=== PATIENT | male | born 1935 | race Caucasian/White ===

== ENCOUNTER 2018-07-16 06:50 | Day surgery (SDC) | payer MEDICARE, OTHER ==
[2018-07-16] MEDS ORDERED: Lidocaine 1% 30 ML SDV ONE (06:54)
[2018-07-16] MEDS ORDERED: Bupivacaine 0.25% 30 ML SDV ONE (06:54)
[2018-07-16] MEDS ORDERED: ceFAZolin 1 GM Vial ONE (06:55)
[2018-07-16] MEDS ORDERED: Lidocaine 1%/Sod Bicarbonate in NS 8.4% 1 ML Syringe IDERM PRN (07:00)
[2018-07-16] MEDS ORDERED: Sodium Chloride 0.9% 10 ML Syringe FLUSH PRN (07:00)
[2018-07-16] MEDS ORDERED: Lactated Ringers 1,000 ML IV SCH (07:00)
--- NOTE | 2018-07-17 07:16 | PCM.OPNOTE ---
- General Post-Op/Procedure Note Date of Surgery/Procedure: 07/16/18 Operative Procedure(s): left carpal tunnel release Pre Op Diagnosis: left median nerve compression neuropathy Post-Op Diagnosis: Same Anesthesia Technique: Local Primary Surgeon: Ferny Bella [employer] Analyst: Gwendolyn Graham in mLs: 5 Complications: None Condition: Good
--- NOTE | 2018-07-18 08:48 | OR ---
DATE OF OPERATION: 07/16/2018 SURGEON: Ferny Bella MD OPERATION PERFORMED: Left carpal tunnel release. PREOPERATIVE DIAGNOSIS: Left median nerve compression neuropathy. POSTOPERATIVE DIAGNOSIS: Left median nerve compression neuropathy. ANESTHESIA: Local. PRIMARY GRADE TEACHER: Gwendolyn Graham PA-C. ESTIMATED BLOOD LOSS: 5 mL. COMPLICATIONS: None. CONDITION: Stable. DESCRIPTION OF PROCEDURE: The patient was identified in the preop holding area. Proper site was marked and identified by the surgeon. The patient was taken back to the operating theater where after adequate anesthesia, the patient's left upper extremity was sterilely prepped and draped in the usual sterile fashion. OR time-out was performed. The patient did not receive antibiotics and it is not indicated for soft tissue hand procedure. At this time, the left upper extremity was exsanguinated and an Esmarch was used as a tourniquet on the forearm. At this time, using 1% lidocaine without epinephrine and 0.25% Marcaine without epinephrine, the palmar cutaneous branch of the median nerve was anesthetized and then the incisional site was anesthetized using Ruiz cardinal line and ulnar border of the fourth digit as reference. Once this had set up, an incision was made. Blunt dissection was taken down to the palmar cutaneous fascia. Palmar cutaneous fascia was incised with a [place] blade. At this time, the transverse carpal ligament was identified. A small rent was made in the transverse carpal ligament with a [place] blade under direct visualization. Resection of the transverse carpal ligament was done distally using tenotomy scissors making sure to stop short of the palmar arch. At this time, attention was turned proximally after it was found to be adequately released. Using the tenotomy scissors keeping the tips ulnar to protect the palmar cutaneous branch of the median nerve, the superficial forearm fascia as well as the transverse carpal ligament were resected proximally. It was found to be adequate release both proximally and distally. At this time, adequate saline was irrigated through the wound. 4-0 nylon sutures were used closure of the skin. The patient was placed in a sterile soft dressing and sent to PACU in stable condition. MMODAL /[id number]
== END 2018-07-16 08:47 | disposition home or self-care (01) ==
LOC: JD.SDS 06:50
PROVIDERS: ATTEND Orthopaedic Surgery
DX: G56.03 Carpal tunnel syndrome, bilateral upper limbs (principal); I10 Essential (primary) hypertension; E78.5 Hyperlipidemia, unspecified; K21.9 Gastro-esophageal reflux disease without esophagitis; Z87.891 Personal history of nicotine dependence; Z79.899 Other long term (current) drug therapy
CPT/HCPCS: J0690; J2001; J3490; J7120

== ENCOUNTER 2019-07-05 07:34 | Emergency (ER) | payer MEDICARE, OTHER ==
--- NOTE | 2019-07-05 08:00 | EDM.PDOC ---
ED HPI GENERAL MEDICAL PROBLEM - General Chief Complaint: General Stated Complaint: FALL/RIB PAIN Time Seen by Provider: 07/05/19 07:48 - History of Present Illness INITIAL COMMENTS - FREE TEXT/NARRATIVE: 84-year-old male presents the emergency room with left-sided rib pain difficulty taking deep breaths. Patient fell on Saturday hitting the left front of his chest on the pavement. He has developed scratch that since that time he has had difficulty breathing especially deep breaths and turning and repositioning his chest is very uncomfortable. Patient denies any other injuries with this unfortunate event. Patient does state that he has some numbness in his index and middle fingers bilaterally but this is been present for quite a long time. The patient fell on Saturday now 2 days ago. Patient denies any fevers or chills he does not have a productive cough. At this time the patient is in no acute distress. - Related Data Allergies Allergy/AdvReac Type Severity Reaction Status Date / Time No Known Allergies Allergy Verified 07/05/19 07:45 Home Meds: Home Meds Pravastatin [Pravachol] 20 mg PO DAILY 08/05/13 [History] lisinopriL [Prinivil] 20 mg PO DAILY 08/05/13 [History] Diphenoxylate HCl/Atropine [Lomotil] 1 tab PO QID PRN 07/15/18 [History] Triamcinolone Acetonide [Nasacort] 2 spray NS BID PRN 07/15/18 [History] Past Medical History HEENT History: Reports: Other (See Below) Other HEENT History: Mouth Cancer Cardiovascular History: Reports: High Cholesterol, Hypertension Respiratory History: Reports: None Other Gastrointestinal History: Colon cancer Genitourinary History: Reports: None Other Musculoskeletal History: Carpal tunnel syndrome Neurological History: Reports: None Psychiatric History: Reports: None Endocrine/Metabolic History: Reports: None Hematologic History: Reports: None Immunologic History: Reports: None Oncologic (Cancer) History: Reports: Colon, Other (See Below) Other Oncologic History: Mouth cancer, skin cancer Dermatologic History: Reports: None - Past Surgical History Head Surgeries/Procedures: Reports: None HEENT Surgical History: Reports: Adenoidectomy, Tonsillectomy Other HEENT Surgeries/Procedures: Oral surgery due to cancer Cardiovascular Surgical History: Reports: None Respiratory Surgical History: Reports: None Other GI Surgeries/Procedures: Partial colectomy with resection and colostomy, reversal of colostomy Male Surgical History: Reports: None Endocrine Surgical History: Reports: None Other Neurological Surgeries/Procedures: Back surgery Musculoskeletal Surgical History: Reports: Knee Replacement Other Musculoskeletal Surgeries/Procedures:: Left ankle fusion, back surgery Dermatological Surgical History: Reports: Skin Biopsy Social & Family History - Tobacco Use Smoking Status *Q: Never Smoker Second Hand Smoke Exposure: No - Caffeine Use Caffeine Use: Reports: None - Recreational Drug Use Recreational Drug Use: No ED ROS GENERAL - Review of Systems Review Of Systems: See Below Constitutional: Reports: No Symptoms. Denies: Fever, Chills HEENT: Reports: No Symptoms Respiratory: Reports: Shortness of Breath. Denies: Wheezing, Cough (I can Julian the chest wall pain), Sputum Cardiovascular: Reports: No Symptoms Endocrine: Reports: No Symptoms GI/Abdominal: Reports: No Symptoms : Reports: No Symptoms Musculoskeletal: Reports: No Symptoms Skin: Reports: No Symptoms Neurological: Reports: No Symptoms ED EXAM, GENERAL - Physical Exam Exam: See Below Exam Limited By: No Limitations General Appearance: Alert, No Apparent Distress Head: Atraumatic, Normocephalic Neck: Normal Inspection, Supple, Non-Tender, Full Range of Motion Respiratory/Chest: No Respiratory Distress, Lungs Clear, Normal Breath Sounds, Other (Significant discomfort in the left anterior chest with palpation this is mostly midway up the chest a little above the nipple line.) Cardiovascular: Regular Rate, Rhythm, No Edema, No Murmur GI/Abdominal: Normal Bowel Sounds, Soft, Non-Tender EKG INTERPRETATION EKG Date: 07/05/19 Rhythm: NSR [place]: Normal P-Wave: Present QRS: Normal ST-T: Normal QT: Normal Comparison: NA - No Prior EKG EKG Interpretation Comments: Amazingly unremarkable EKG for 84-year-old gentleman Course - Vital Signs Last Recorded V/S: Last Vital Signs Temp 36.4 C 07/05/19 07:43 Pulse 71 07/05/19 07:43 Resp 16 07/05/19 07:43 BP 142/63 H 07/05/19 07:43 Pulse Ox 98 07/05/19 07:43 - Orders/Labs/Meds Orders: Active Orders 24 hr Category Date Time Status EKG Documentation Completion [RC] STAT Care 07/05/19 08:00 Active Chest 2V [CR] Stat Exams 07/05/19 08:00 Taken Ribs 2V wo Chest Lt [CR] Stat Exams 07/05/19 08:00 Taken - Re-Assessments/Exams Free Text/Narrative Re-Assessment/Exam: 07/05/19 08:33 KG shows no acute changes I am waiting official radiology read at this x-rays but I do not see any obvious rib fractures or acute cardiopulmonary changes. He is got some underlying lung disease but nothing acute. Departure - Departure Time of Disposition: 08:34 Disposition: Home, Self-Care 01 Clinical Impression: Chest wall contusion - Discharge Information Referrals: Delano Everett MD [Primary Care Provider] - Forms: ED Department Discharge Additional Instructions: Return to the emergency room with any questions problems or worsening symptoms. Take Tylenol 650 mg every 4-6 hours while awake for the discomfort. Every hour and a half or so while you are awake take 3 really deep breaths then hold it for a few seconds then slowly let it out. Sepsis Event Note - Evaluation Sepsis Screening Result: No Definite Risk - Focused Exam Vital Signs: Vital Signs Temp Pulse Resp BP Pulse Ox 07/05/19 07:43 36.4 C 71 16 142/63 H 98 Date Exam was Performed: 07/05/19 Time Exam was Performed: 08:32 - My Orders Last 24 Hours: My Active Orders 07/05/19 08:00 EKG Documentation Completion [RC] STAT Chest 2V [CR] Stat Ribs 2V wo Chest Lt [CR] Stat - Assessment/Plan Last 24 Hours: My Active Orders 07/05/19 08:00 EKG Documentation Completion [RC] STAT Chest 2V [CR] Stat Ribs 2V wo Chest Lt [CR] Stat
[2019-07-05] MEDS ORDERED: Acetaminophen 325 MG Tab PO ONE (08:33)
--- NOTE | 2019-07-05 14:00 | CR ---
Left ribs: 3 views of the left ribs were obtained. Comparison: No previous rib exam, study correlated with chest x-ray performed on the same day. Findings: Acute fracture is identified within the left 7th rib. No displacement is appreciated. Slight deformity is noted within the left 3rd and 4th ribs possibly due to additional acute fractures. Deformity is noted within the left 5th and 6th ribs which more likely represent old rib fractures. Additional rib deformities are seen within the 8th and 9th ribs most likely due to old fractures. Impression: 1. Definite acute fracture within the left 7th rib. Possible acute fractures within the left 3rd and 4th ribs. 2. Probable old fractures which appear healed within the left 5th and 6th as well as 8th and 9th ribs. Diagnostic code #3 This report was dictated in MDT
--- NOTE | 2019-07-05 14:00 | CR ---
Chest: 2 views of the chest were obtained. Comparison: No previous chest imaging is available. Heart size and mediastinum are normal. Mild scoliosis is noted within the spine with mild degenerative change. Lungs show no acute parenchymal change. No pneumothorax is identified. Rib fractures are seen which will be described on subsequent rib exam. Surgical clips are seen within the left upper abdomen. Impression: 1. Nothing acute seen on PA and lateral chest x-ray. 2. Please see rib exam for description of rib fractures. Diagnostic code #2 This report was dictated in MDT
== END 2019-07-05 08:49 | disposition home or self-care (01) ==
LOC: JD.ED 07:34
DX: S20.212A Contusion of left front wall of thorax, initial encounter (principal); E78.00 Pure hypercholesterolemia, unspecified; I10 Essential (primary) hypertension; Z79.899 Other long term (current) drug therapy; Z85.038 Personal history of other malignant neoplasm of large intestine; Z85.828 Personal history of other malignant neoplasm of skin; W19.XXXA Unspecified fall, initial encounter
CPT/HCPCS: 71046; 71100; 93005; 99283; A9270; 93010

== ENCOUNTER 2020-09-02 07:58 | Emergency (ER) | payer MEDICARE, OTHER ==
--- NOTE | 2020-09-02 08:45 | EDM.PDOC ---
ED HPI GENERAL MEDICAL PROBLEM - General Chief Complaint: Respiratory Problem Stated Complaint: COUGH X 10 DAYS Time Seen by Provider: 09/02/20 08:42 - History of Present Illness INITIAL COMMENTS - FREE TEXT/NARRATIVE: 85-year-old male presents the emergency room with a cough. This cough has been present for 10 days. Patient is not aware of any fevers or chills. He has not had any nausea or vomiting. At times he gets dizzy after coughing several times. Patient has not had any chest pain or chest pressure. He has not noticed any lower extremity edema. No abdominal pain nausea vomiting or diarrhea. Patient is coughing up some clear to off-color sputum at times. He has not complained of his cough been especially painful. - Related Data Allergies Allergy/AdvReac Type Severity Reaction Status Date / Time No Known Allergies Allergy Verified 09/02/20 08:26 Home Meds: Home Meds lisinopriL [Prinivil] 20 mg PO DAILY 08/05/13 [History] Diphenoxylate HCl/Atropine [Lomotil] 1 tab PO QID PRN 07/15/18 [History] Doxycycline [Vibramycin] 100 mg PO BID #14 tab 09/02/20 [Rx] Past Medical History HEENT History: Reports: Other (See Below) Other HEENT History: Mouth Cancer Cardiovascular History: Reports: High Cholesterol, Hypertension Respiratory History: Reports: None Other Gastrointestinal History: Colon cancer Genitourinary History: Reports: None Other Musculoskeletal History: Carpal tunnel syndrome Neurological History: Reports: None Psychiatric History: Reports: None Endocrine/Metabolic History: Reports: None Hematologic History: Reports: None Immunologic History: Reports: None Oncologic (Cancer) History: Reports: Colon, Other (See Below) Other Oncologic History: Mouth cancer, skin cancer Dermatologic History: Reports: None - Infectious Disease History Infectious Disease History: Reports: Chicken Pox, Measles, Mumps - Past Surgical History HEENT Surgical History: Reports: Adenoidectomy, Tonsillectomy Other HEENT Surgeries/Procedures: Oral surgery due to cancer Respiratory Surgical History: Reports: None Other GI Surgeries/Procedures: Partial colectomy with resection and colostomy, reversal of colostomy Male Surgical History: Reports: None Endocrine Surgical History: Reports: None Other Neurological Surgeries/Procedures: Back surgery Musculoskeletal Surgical History: Reports: Knee Replacement Other Musculoskeletal Surgeries/Procedures:: Left ankle fusion, back surgery Dermatological Surgical History: Reports: Skin Biopsy Social & Family History - Tobacco Use Tobacco Use Status *Q: Former Tobacco User Years of Tobacco use: 35 Packs/Tins Daily: 1 Used Tobacco, but Quit: Yes Month/Year Tobacco Last Used: 1989 - Caffeine Use Caffeine Use: Reports: Coffee - Recreational Drug Use Recreational Drug Use: No ED ROS GENERAL - Review of Systems Review Of Systems: See Below Constitutional: Reports: No Symptoms HEENT: Reports: No Symptoms Respiratory: Reports: Cough, Sputum. Denies: Shortness of Breath, Pleuritic Chest Pain Cardiovascular: Denies: Chest Pain Endocrine: Reports: No Symptoms GI/Abdominal: Reports: No Symptoms Skin: Reports: No Symptoms Neurological: Reports: No Symptoms ED EXAM, GENERAL - Physical Exam Exam: See Below Exam Limited By: No Limitations General Appearance: Alert, No Apparent Distress Ears: Normal External Exam, Normal Canal, Hearing Grossly Normal, Normal TMs Nose: Normal Inspection, Normal Mucosa, No Blood Throat/Mouth: Normal Inspection, Normal Lips, Normal Gums, Normal Oropharynx, Normal Voice, No Airway Compromise, Other (He still has his teeth he has had multiple repairs in the past) Head: Atraumatic, Normocephalic Neck: Normal Inspection, Supple, Non-Tender, Full Range of Motion Respiratory/Chest: No Respiratory Distress, Lungs Clear, Normal Breath Sounds Cardiovascular: Normal Peripheral Pulses, Regular Rate, Rhythm, No Edema, Other (Soft murmur heard best left lateral area this is much milder than the bruit heard in the abdomen and could be radiating from that area.) GI/Abdominal: Normal Bowel Sounds, Soft, Non-Tender, Other (He has what sounds like an abdominal bruit heard best over the umbilicus) Back Exam: Normal Inspection. No: CVA Tenderness (L), CVA Tenderness (R) Extremities: Normal Inspection, No Pedal Edema. No: Pedal Edema Neurological: Alert, Oriented, Normal Cognition Psychiatric: Normal Affect, Normal Mood #1 Interpretation EKG Date: 09/02/20 Rhythm: Other (Normal sinus rhythm with a single PAC) [place]: Normal P-Wave: Present QRS: Normal ST-T: Normal QT: Normal Comparison: No Change (No significant change from 07/05/2019) EKG Interpretation Comments: Other than the PA-C normal EKG Course - Vital Signs Last Recorded V/S: Last Vital Signs Temp 35.8 C L 09/02/20 08:27 Pulse 76 09/02/20 08:27 Resp 21 H 09/02/20 08:27 BP 141/63 H 09/02/20 08:27 Pulse Ox 99 09/02/20 08:27 - Orders/Labs/Meds Orders: Active Orders 24 hr Category Date Time Status EKG Documentation Completion [RC] STAT Care 09/02/20 08:56 Active Labs: Laboratory Tests 09/02/20 09/02/20 09/02/20 Range/Units 09:08 09:24 09:24 WBC 8.46 (4.23-9.07) K/mm3 RBC 3.81 L (4.63-6.08) M/mm3 Hgb 12.0 L (13.7-17.5) gm/dl Hct 36.7 L (40.1-51.0) % MCV 96.3 H (79.0-92.2) fl MCH 31.5 (25.7-32.2) pg MCHC 32.7 (32.2-35.5) g/dl RDW Std Deviation 44.3 H (35.1-43.9) fL Plt Count 237 (163-337) K/mm3 MPV 10.2 (9.4-12.3) fl Neut % (Auto) 77.7 H (34.0-67.9) % Lymph % (Auto) 10.6 L (21.8-53.1) % Wallace % (Auto) 10.5 (5.3-12.2) % Eos % (Auto) 0.6 L (0.8-7.0) Baso % (Auto) 0.2 (0.1-1.2) % Neut # (Auto) 6.57 H (1.78-5.38) K/mm3 Lymph # (Auto) 0.90 L (1.32-3.57) K/mm3 Wallace # (Auto) 0.89 H (0.30-0.82) K/mm3 Eos # (Auto) 0.05 (0.04-0.54) K/mm3 Baso # (Auto) 0.02 (0.01-0.08) K/mm3 D-Dimer, Quantitative (0.19-0.50) mg/L Sodium 141 (136-145) mEq/L Potassium 4.3 (3.5-5.1) mEq/L Chloride 107 (98-107) mEq/L Carbon Dioxide 23 (21-32) mEq/L Anion Gap 15.3 H (5-15) BUN 37 H (7-18) mg/dL Creatinine 1.6 H (0.7-1.3) mg/dL Est Cr Clr Drug Dosing 25.04 mL/min Estimated GFR (MDRD) 41 (>60) mL/min BUN/Creatinine Ratio 23.1 H (14-18) Glucose 126 H (70-99) mg/dL Calcium 11.4 H (8.5-10.1) mg/dL Total Bilirubin 0.7 (0.2-1.0) mg/dL AST 18 (15-37) U/L ALT 18 (16-63) U/L Alkaline Phosphatase 61 (46-116) U/L Troponin I < 0.017 (0.00-0.056) ng/mL Total Protein 7.1 (6.4-8.2) g/dl Albumin 3.3 L (3.4-5.0) g/dl Globulin 3.8 gm/dL Albumin/Globulin Ratio 0.9 L (1-2) SARS-CoV-2 RNA (NIGHAT) Negative (NEGATIVE) 09/02/20 Range/Units 09:24 WBC (4.23-9.07) K/mm3 RBC (4.63-6.08) M/mm3 Hgb (13.7-17.5) gm/dl Hct (40.1-51.0) % MCV (79.0-92.2) fl MCH (25.7-32.2) pg MCHC (32.2-35.5) g/dl RDW Std Deviation (35.1-43.9) fL Plt Count (163-337) K/mm3 MPV (9.4-12.3) fl Neut % (Auto) (34.0-67.9) % Lymph % (Auto) (21.8-53.1) % Wallace % (Auto) (5.3-12.2) % Eos % (Auto) (0.8-7.0) Baso % (Auto) (0.1-1.2) % Neut # (Auto) (1.78-5.38) K/mm3 Lymph # (Auto) (1.32-3.57) K/mm3 Wallace # (Auto) (0.30-0.82) K/mm3 Eos # (Auto) (0.04-0.54) K/mm3 Baso # (Auto) (0.01-0.08) K/mm3 D-Dimer, Quantitative 0.48 (0.19-0.50) mg/L Sodium (136-145) mEq/L Potassium (3.5-5.1) mEq/L Chloride (98-107) mEq/L Carbon Dioxide (21-32) mEq/L Anion Gap (5-15) BUN (7-18) mg/dL Creatinine (0.7-1.3) mg/dL Est Cr Clr Drug Dosing mL/min Estimated GFR (MDRD) (>60) mL/min BUN/Creatinine Ratio (14-18) Glucose (70-99) mg/dL Calcium (8.5-10.1) mg/dL Total Bilirubin (0.2-1.0) mg/dL AST (15-37) U/L ALT (16-63) U/L Alkaline Phosphatase (46-116) U/L Troponin I (0.00-0.056) ng/mL Total Protein (6.4-8.2) g/dl Albumin (3.4-5.0) g/dl Globulin gm/dL Albumin/Globulin Ratio (1-2) SARS-CoV-2 RNA (NIGHAT) (NEGATIVE) - Re-Assessments/Exams Free Text/Narrative Re-Assessment/Exam: 09/02/20 11:15 10-day cough in a gentleman of this age is concerning x-ray did not show a pneumonia however this is not entirely excluded he could have a wet bronchitis we will start him on doxycycline 100 mg twice daily for 7 days. I recommended he follow-up with his regular healthcare provider early this next week and with the possible abdominal bruit he may need to be evaluated for AAA. Departure - Departure Time of Disposition: 11:12 Disposition: Home, Self-Care 01 Clinical Impression: Bronchitis - Discharge Information Referrals: Delano Everett MD [Primary Care Provider] - Forms: ED Department Discharge Additional Instructions: Return to the emergency room with any questions problems or worsening symptoms. Follow-up with your regular healthcare provider early this next week for follow- up on your cough and also discuss if you need to be evaluated for an abdominal aortic aneurysm this is a swelling in the large blood vessel in your abdomen. But he can make a noise like we heard in your abdomen on today's exam. You have been started on doxycycline, this is an antibiotic, take 1 twice daily until all gone avoid sun exposure while taking this antibiotic wear a good hat and longsleeve shirts if you are going to be outside. Sepsis Event Note (ED) - Evaluation Sepsis Screening Result: Possible Sepsis Risk - Focused Exam Vital Signs: Vital Signs Temp Pulse Resp BP Pulse Ox 09/02/20 08:27 35.8 C L 76 21 H 141/63 H 99 - My Orders Last 24 Hours: My Active Orders 09/02/20 08:56 EKG Documentation Completion [RC] STAT - Assessment/Plan Last 24 Hours: My Active Orders 09/02/20 08:56 EKG Documentation Completion [RC] STAT
--- NOTE | 2020-09-02 10:24 | CR ---
Chest: Portable view of the chest was obtained. Comparison: Prior chest x-ray of 07/05/19. Heart size and mediastinum are within normal limits. Both upper lungs show minimal calcifications which are incidental. Lungs otherwise are clear with no acute parenchymal change. Slight degenerative change is scattered within the spine. Surgical clips are seen within the upper left abdomen. Impression: 1. Findings as described above which are believed to be incidental. 2. Nothing acute is seen on portable chest x-ray. Diagnostic code #2
== END 2020-09-02 11:25 | disposition home or self-care (01) ==
LOC: JD.ED 07:58
DX: J40 Bronchitis, not specified as acute or chronic (principal); I10 Essential (primary) hypertension; Z87.891 Personal history of nicotine dependence; Z20.822 Contact with and (suspected) exposure to COVID-19; Z79.899 Other long term (current) drug therapy
CPT/HCPCS: 36415; 71045; 80053; 84484; 85025; 85379; 93005; 99284; U0002

== ENCOUNTER 2021-11-20 20:45 | Emergency (ER) | payer MEDICARE, OTHER | END 2021-11-20 23:15 | disposition left against medical advice (07) | LOC: JD.ED 20:45 | DX: S00.03XA Contusion of scalp, initial encounter (principal); S50.312A Abrasion of left elbow, initial encounter; E78.00 Pure hypercholesterolemia, unspecified; I10 Essential (primary) hypertension; Z87.891 Personal history of nicotine dependence; W18.30XA Fall on same level, unspecified, initial encounter; Y92.009 Unspecified place in unspecified non-institutional (private) residence as the place of occurrence of the external cause | CPT/HCPCS: 70450; 70450-26; 73080-26-LT; 73080-LT; 99283; 99284 ==